=== PATIENT | male | born 1940 | race Caucasian/White ===

== ENCOUNTER → 2016-12-10 | Outpatient (CLI) | payer MEDICARE, OTHER ==
[~2016-12-10] MED LIST: ACETAMINOPHEN650 M2 PO; ASPIR 8181 MG PO; BENAZEPRIL-HCT1 EAC1; COLACE100 MG PO; CORDARONE,PACE200 MG PO; FLEXERIL10 MG PO; K-TAB ER20 MEQ PO; KRILL OIL 3001 EACH PO; LASIX40 M1 PO; LEVOTHROID (SY50 MCG PO; LIPITOR40 MG PO; LOPRESSOR12.5 MG/0. PO; LOPRESSOR25 MG PO; LOTENSIN20 MG PO; NORCO 5-325 MG1 TAB PO; NORVASC5 MG; NORVASC5 MG PO; OCUVITE WITH L1 EACH PO; OMEGA 3 FISH O1 EACH PO; PROTONIX40 MG PO; [UNRECOGNIZED DRUG - OTHER] PO
== END | disposition disaster alternative care site (69) ==
LOC: LHSC 12:56
DX: Z12.11 Encounter for screening for malignant neoplasm of colon (principal)